=== PATIENT | male | born 1950 | race Caucasian/White ===

== ENCOUNTER 2022-12-12 19:37 | Emergency (ER) | payer MEDICARE, MEDICAID ==
[2022-12-12 20:14] LABS: BASOPHILS ABSOLUTE AUTO 0.02 K/mm3 (0.01-0.08); BASOPHILS PERCENT AUTO 0.1 % (0.1-1.2); EOSINOPHILS ABSOLUTE AUTO 0.04 K/mm3 (0.04-0.54); EOSINOPHILS PERCENT AUTO 0.2 (0.8-7.0); HEMATOCRIT 44.6 % (40.1-51.0); HEMOGLOBIN 15.1 gm/dl (13.7-17.5); IMMATURE GRAN ABSOLUTE AUTO 0.07 K/mm3 (0.00-0.10); IMMATURE GRAN PERCENT AUTO 0.3 % (<=1.0); MEAN CORPUSCULAR HEMOGLOBIN 33.9 pg (25.7-32.2); MEAN CORPUSCULAR HGB CONC 33.9 g/dl (32.2-35.5); MEAN PLATELET VOLUME 10.9 fl (9.4-12.3); MONOCYTES ABSOLUTE AUTO 2.01 K/mm3 (0.30-0.82); MONOCYTES PERCENT AUTO 8.4 % (5.3-12.2); NEUTROPHILS ABSOLUTE AUTO 20.66 K/mm3 (1.78-5.38); PLATELET COUNT,PLT 261 K/mm3 (163-337); RED BLOOD CELL COUNT 4.46 M/mm3 (4.63-6.08)
[2022-12-12 20:21] LABS: INR 1.02; PROTHROMBIN TIME 10.9 SECONDS (9.7-12.0)
[2022-12-12 20:23] LABS: PTT,PARTIAL THROMBOPLSTIN TIME 28.8 SECONDS (21.7-31.4)
[2022-12-12 20:25] LABS: D-DIMER QUANTITATIVE 1.31 mg/L (0.19-0.50)
[2022-12-12 20:28] LABS: ALBUMIN 4.2 g/dl (3.4-5.0); ANION GAP 16.9 (5-15); BILIRUBIN TOTAL 1.3 mg/dL (0.2-1.0); BUN/CREATININE RATIO 11.3 (14-18); CALCIUM 9.8 mg/dL (8.5-10.1); EST CRCL DRUG DOSING (CG) 24.79 mL/min; MAGNESIUM 2.3 mg/dL (1.8-2.4); POTASSIUM,K 3.9 mEq/L (3.5-5.1); PROTEIN TOTAL,TP 8.5 g/dl (6.4-8.2)
[2022-12-12 21:15] LABS: SLIDE REVIEW ABNORMAL SMEAR
[2022-12-12] MEDS ORDERED: Sodium Chloride 0.9% 1,000 ML IV ONE (21:48)
[2022-12-12] MEDS: Bupivacaine 0.5% 10 ML SDV INJECT ONE ×2 (22:06→22:16)
[2022-12-12] MEDS: Lidocaine 1% 10 ML MDV INJECT ONE ×3 (22:06→23:55)
[2022-12-12] MEDS ORDERED: levETIRAcetam 500 MG Tab PO STA (23:31)
[2022-12-12 23:36] LABS: APPEARANCE,URINE CLEAR (Clear); BILIRUBIN,URINE NEGATIVE (Negative); COLOR,URINE LIGHT YELLOW (Yellow); GLUCOSE,URINE NEGATIVE (Negative); KETONES,URINE NEGATIVE (Negative); LEUKOCYTE ESTERASE,URINE NEGATIVE (Negative); NITRITE,URINE NEGATIVE (Negative); OCCULT BLOOD,URINE 2+ (Negative); PROTEIN,URINE 1+ (Negative); UROBILINOGEN,URINE 0.2 (0.2-1.0)
[2022-12-12 23:52] LABS: BACTERIA,URINE FEW /hpf (FEW); EPITHELIAL CELLS,URINE 0-5 /hpf (0-5); MUCUS,URINE RARE /hpf (FEW)
[2022-12-13] MEDS ORDERED: LORazepam 2 MG/ML SDV IVPUSH STA (03:17)
[2022-12-13 14:37] LABS: BASOPHILS ABSOLUTE AUTO 0.03 K/mm3 (0.01-0.08); BASOPHILS PERCENT AUTO 0.2 % (0.1-1.2); EOSINOPHILS ABSOLUTE AUTO 0.01 K/mm3 (0.04-0.54); EOSINOPHILS PERCENT AUTO 0.1 (0.8-7.0); HEMATOCRIT 44.4 % (40.1-51.0); HEMOGLOBIN 15.1 gm/dl (13.7-17.5); IMMATURE GRAN ABSOLUTE AUTO 0.07 K/mm3 (0.00-0.10); IMMATURE GRAN PERCENT AUTO 0.4 % (<=1.0); LYMPHOCYTES ABSOLUTE AUTO 1.91 K/mm3 (1.32-3.57); LYMPHOCYTES PERCENT AUTO 10.2 % (21.8-53.1); MEAN CORPUSCULAR HEMOGLOBIN 33.7 pg (25.7-32.2); MEAN CORPUSCULAR VOLUME 99.1 fl (79.0-92.2); MEAN PLATELET VOLUME 10.5 fl (9.4-12.3); MONOCYTES ABSOLUTE AUTO 2.34 K/mm3 (0.30-0.82); MONOCYTES PERCENT AUTO 12.5 % (5.3-12.2); NEUTROPHILS ABSOLUTE AUTO 14.33 K/mm3 (1.78-5.38); NEUTROPHILS PERCENT AUTO 76.6 % (34.0-67.9); PLATELET COUNT,PLT 210 K/mm3 (163-337); RED BLOOD CELL COUNT 4.48 M/mm3 (4.63-6.08); WHITE BLOOD CELL COUNT,WBC 18.69 K/mm3 (4.23-9.07)
[2022-12-13 14:55] LABS: SLIDE REVIEW ABNORMAL SMEAR
[2022-12-13] MEDS ORDERED: levETIRAcetam 500 MG Tab PO SCH (18:00)
== END 2022-12-13 17:26 | disposition home or self-care (01) ==
LOC: JD.ED 19:37
DX: S02.2XXA Fracture of nasal bones, initial encounter for closed fracture (principal); S61.212A Laceration without foreign body of right middle finger without damage to nail, initial encounter; S09.90XA Unspecified injury of head, initial encounter; I10 Essential (primary) hypertension; Z87.891 Personal history of nicotine dependence; W19.XXXA Unspecified fall, initial encounter; Y92.002 Bathroom of unspecified non-institutional (private) residence as the place of occurrence of the external cause
CPT/HCPCS: 12002; 36415; 70450; 70486; 80053; 80307; 81001; 82140; 82947; 83735; 84443; 84484; 85025; 85379; 85610; 85730; 93005; 96361; 96374; 99284; A9270; J2060; J3490; J7030; 93010; 99283

== ENCOUNTER 2023-01-21 09:42 | Emergency (ER) | payer MEDICARE, MEDICAID ==
[2023-01-21] MEDS ORDERED: Sodium Chloride 0.9% 1,000 ML IV SCH (10:15)
[2023-01-21 10:41] LABS: HEMATOCRIT 46.7 % (42.0-52.0); MEAN CORPUSCULAR HEMOGLOBIN 33.7 pg (28.0-32.0); MEAN CORPUSCULAR HGB CONC 34.3 g/dl (32.0-36.0); MEAN CORPUSCULAR VOLUME 98.3 fl (83.0-99.0); MEAN PLATELET VOLUME 9.4 fl (9.4-12.4); PLATELET COUNT,PLT 262 K/mm3 (150-400); RED BLOOD CELL COUNT 4.75 M/mm3 (4.52-5.90); WHITE BLOOD CELL COUNT,WBC 8.16 K/mm3 (3.9-11.3)
[2023-01-21 10:55] LABS: APPEARANCE,URINE CLEAR (Clear); BILIRUBIN,URINE NEGATIVE (Negative); COLOR,URINE YELLOW (Yellow); GLUCOSE,URINE NEGATIVE (Negative); KETONES,URINE NEGATIVE (Negative); LEUKOCYTE ESTERASE,URINE NEGATIVE (Negative); NITRITE,URINE NEGATIVE (Negative); OCCULT BLOOD,URINE NEGATIVE (Negative); PROTEIN,URINE 1+ (Negative); UROBILINOGEN,URINE 0.2 (0.2-1.0)
[2023-01-21 11:04] LABS: ANION GAP 15.9 (5-15); BILIRUBIN TOTAL 0.6 mg/dL (0.2-1.0); CALCIUM 9.4 mg/dL (8.5-10.1); CREATININE 1.2 mg/dL (0.7-1.3); EST CRCL DRUG DOSING (CG) 60.14 mL/min; POTASSIUM,K 3.9 mEq/L (3.5-5.1)
[2023-01-21] MEDS ORDERED: Sodium Chloride 0.9% 10 ML Syringe FLUSH PRN (11:18)
[2023-01-21] MEDS ORDERED: Iopamidol 612 MG/ML 100 ML Bottle IVPUSH ONE (11:18)
[2023-01-21 11:25] LABS: BACTERIA,URINE FEW /hpf (FEW); EPITHELIAL CELLS,URINE 0-5 /hpf (0-5); MUCUS,URINE FEW /hpf (FEW); RBC,URINE 0-5 /hpf (0-5); WBC,URINE 0-5 /hpf (0-5)
[2023-01-21 11:37] LABS: BAND PERCENT MAN 1 % (0-10); BASOPHILS PERCENT MAN 2 (0.2-1.2); EOSINOPHILS PERCENT MAN 1 % (0.8-7.0); LYMPHOCYTES % ATYPICAL MANUAL 0 %; LYMPHOCYTES PERCENT MAN 22 % (20-40); MONOCYTES PERCENT MAN 9 % (2-10)
[2023-01-21 11:39] LABS: ANISOCYTOSIS 1+ SLIGHT; OVALOCYTES 1+ SLIGHT; PLATELET COUNT ESTIMATE ADEQUATE
== END 2023-01-21 12:32 | disposition home or self-care (01) ==
LOC: JD.ED 09:42
DX: N28.89 Other specified disorders of kidney and ureter (principal); E27.9 Disorder of adrenal gland, unspecified; E78.00 Pure hypercholesterolemia, unspecified; I10 Essential (primary) hypertension; Z87.891 Personal history of nicotine dependence; Z79.899 Other long term (current) drug therapy
CPT/HCPCS: 36415; 74177; 80053; 81001; 83690; 83735; 85007; 85027; 86140; 96360; 96361; 99284; J3490; J7030; Q9967

== ENCOUNTER 2023-02-12 13:19 | Emergency (ER) | payer MEDICARE, MEDICAID ==
[2023-02-12] MEDS ORDERED: EPINEPHrine 1:10,000 1 MG/10 ML Syringe ONE (13:24)
== END 2023-02-12 15:48 | disposition expired ==
LOC: JD.ED 13:19
DX: I46.9 Cardiac arrest, cause unspecified (principal); I10 Essential (primary) hypertension; M19.90 Unspecified osteoarthritis, unspecified site
CPT/HCPCS: 36415; 86850; 86900; 86901; 86922; 92950; 99285; J0171; P9016; 31500; 99284